=== PATIENT | male | born 1990 | race Hispanic/Latino ===

== ENCOUNTER 2017-11-28 08:30 | Emergency (ER) | payer OTHER ==
[~2017-11-28] VITALS: Ht 165.1 cm; Wt 54.6 kg
[2017-11-28 09:24] LABS: HEMATOCRIT 40.6 % (38.0-50.0); HEMOGLOBIN 13.9 G/DL (12.5-16.6); MCH 28.7 PG (29.0-34.0); MCHC 34.2 G/DL (30.0-36.0); MCV 83.7 FL (86-99); PLATELET COUNT 200 K/uL (156-360); RBC DIS.WIDTH-CV 13.2 % (11.8-14.6); RBC DIS.WIDTH-SD 40.2 % (39-53); RED BLOOD COUNT 4.85 M/uL (4.00-5.50); WHITE BLOOD COUNT 12.8 K/uL (4.1-10.2)
[2017-11-28 09:34] LABS: APPEARANCE CLEAR ((CLEAR)); BILIRUBIN NEGATIVE; BLOOD NEGATIVE; COLOR YELLOW ((YELLOW)); GLUCOSE (STRIP) NEGATIVE; KETONES NEGATIVE; LEUKOCYTES TRACE; NITRITE NEGATIVE; PROTEIN (STRIP) 30; SPECIFIC GRAVITY 1.021 (1.000-1.030); UROBILINOGEN 0.2 MG/DL (0.2-1.0)
[2017-11-28 09:35] LABS: ALBUMIN 4.5 g/dL (3.2-4.8)
[2017-11-28 09:36] LABS: CHLORIDE 105 mEq/L (99-109); POTASSIUM 3.9 mEq/L (3.7-5.4); SODIUM 136 mEq/L (136-147)
[2017-11-28 09:38] LABS: GLUCOSE 98 mg/dL (70-99); TOTAL PROTEIN 7.3 g/dL (6.4-8.3)
[2017-11-28 09:40] LABS: BACTERIA RARE /HPF; EPITHELIAL CELLS NONE SEEN /HPF; MUCUS 1+ /LPF; RED BLOOD CELLS 0-5 /HPF (0-5); TOTAL BILIRUBIN 0.6 mg/dL (0.0-1.0); UCUL ADDED? YES
[2017-11-28 09:41] LABS: ALKALINE PHOSPHATASE 55 IU/L (3-129)
[2017-11-28 09:42] LABS: CREATININE 0.8 mg/dL (0.6-1.3)
[2017-11-28 09:43] LABS: AST (GOT) 17 IU/L (2-34); UREA NITROGEN (BUN) 12 mg/dL (9-23)
[2017-11-28 09:44] LABS: ALT (GPT) 12 IU/L (3-49)
[2017-11-28 09:46] LABS: GFR ESTIMATE (CALCULATED) > 59 mL/min/ (58.99-99999)
[2017-11-28] MEDS ORDERED: KEFLEX500 MG PO (12:05)
[2017-11-28] MEDS ORDERED: ZOFRAN ODT4 MG PO (12:05)
[2017-11-28] MEDS ORDERED: NAPROSYN500 MG PO (12:05)
[2017-11-28 12:59] VITALS: BP 118/59
== END 2017-11-28 13:00 | disposition home or self-care (01) ==
LOC: EME 08:30
DX: A08.4 Viral intestinal infection, unspecified (principal); N39.0 Urinary tract infection, site not specified; J02.8 Acute pharyngitis due to other specified organisms; B97.89 Other viral agents as the cause of diseases classified elsewhere; R10.13 Epigastric pain; F17.200 Nicotine dependence, unspecified, uncomplicated; Z88.0 Allergy status to penicillin
CPT/HCPCS: 80053; 81003; 85027; 87086; 87502; 87651 90; 99281; 99284; J0696; J1885; J7030